=== PATIENT | female | born 1985 | race African-American/Black ===

== ENCOUNTER 2023-12-08 15:06 | Outpatient (CLI) | payer MEDICARE | END 2023-12-08 15:07 | disposition home or self-care (01) | LOC: CSHULT 15:06 | PROVIDERS: ATTEND Nurse Practitioner Women's Health | DX: R09.89 Other specified symptoms and signs involving the circulatory and respiratory systems (principal) ==

== ENCOUNTER 2024-01-26 16:55 | Emergency (ER) | payer MEDICARE ==
[~2024-01-26 16:55] MED LIST: Iopamidol 300 61% 100 ML VIAL FS ONE
[2024-01-26] MEDS ORDERED: Ondansetron PF 4 MG/2 ML Vial ONE (17:20)
[2024-01-26] MEDS ORDERED: Ketorolac Tromethamine 30 MG (1 mL) VIAL ONE (17:20)
[2024-01-26 17:27] LABS: #Basophils 0.02 10x3/uL (0.0-0.2); #Eosinphils 0.03 10x3/uL (0.0-0.5); #Monocytes 0.33 10x3/uL (0.0-1.1); #Neutrophils 7.65 10x3/uL (1.5-8.4); %Basophils 0.2 % (0.0-2.0); %Eosinophils 0.3 % (0.0-6.0); %Lymphocytes 19.6 % (18.0-47.0); %Monocytes 3.3 % (0.0-10.0); %Neutrophils 76.3 % (40.0-75.0); Hematocrit 37.7 % (34.9-44.5); Hemoglobin 11.7 g/dL (12.0-15.5); Mean Corpuscular Hemoglobin 23.4 pg (27.0-33.0); Mean Corpuscular Volume 75.6 fL (81.6-98.3); Platelet Count 420 10x3/uL (150-450); RBC Distribution Width 26.1 % (11.5-14.5); Red Blood Cell (RBC) Count 4.99 10x6/uL (3.90-5.03)
[2024-01-26 17:33] LABS: BHCG - Serum Negative (NEGATIVE); Pregs Control Background? CLEAR/WHITE (CLR/WHITE); Pregs Control Bar Appear? YES (CONTROL BAR)
[2024-01-26 17:40] LABS: ALT (SGPT) 21 U/L (8-55); AST (SGOT) 31 U/L (5-34); Albumin 3.9 g/dL (3.5-5.0); Alkaline Phosphatase 143 U/L (40-110); Anion Gap 11 mmol/L (10-20); BUN (Urea Nitrogen) 8 mg/dL (7.0-18.7); Bilirubin, Total 0.3 mg/dL (0.2-1.2); Calc. Creatinine Clearance 0 mL/min (70-130); Calcium 9.5 mg/dL (7.8-10.44); Carbon Dioxide 25 mmol/L (22-29); Chloride 106 mmol/L (98-107); Estimated GFR 98; Globulin 4.2 g/dL (2.4-3.5); Glucose 111 mg/dL (70-105); Lipase 130 U/L (8-78); Magnesium 2.3 mg/dL (1.6-2.6); Potassium 4.4 mmol/L (3.5-5.1); Protein, Total 8.1 g/dL (6.0-8.3); Sodium 138 mmol/L (136-145)
[2024-01-26 17:43] LABS: Anisocytosis MODERATE=16-30 cells (100X) (0-5/hpf); Microcytosis SLIGHT = 6-15 cells (100X) (0-5/hpf); Poikilocytosis SLIGHT = 6-15 cells (100X) (0-5/hpf)
[2024-01-26 17:44] LABS: Elliptocytes SLIGHT = 2-5 cells (100X) (0-1/hpf); Ovalocytes SLIGHT = 2-5 cells (100X) (0-1/hpf); Schistocytes SLIGHT = 2-5 cells (100X) (0-1/hpf); Tear Drops SLIGHT = 2-5 cells (100X) (0-1/hpf)
[2024-01-26 17:45] LABS: Hypochromia SLIGHT = 6-15 cells (100X) (0-5/hpf); Large Platelets SLIGHT (None Seen); Platelet Adequacy Comment Appears Adequate
[2024-01-26 19:49] LABS: Bilirubin Neg (Negative); Blood, Urine 10 (Negative); Clarity Clear (Clear); Glucose, Urine (Dipstick) 50 mg/dL (Negative); Ketone, Urine Negative (Negative); Leukocyte Negative (Negative); Nitrite Negative (Negative); Protein, Urine (Dipstick) Negative (Neg-Trace); Specific Gravity, Urine 1.005 (1.005-1.030); Urobilinogen Normal mg/dL (Less than 2)
[2024-01-26 19:56] LABS: Bacteria/HPF Rare-Few HPF (None Seen); CAUTI Indications for Culture Pelvic or flank pain; RBC/HPF 0-3 HPF (0-3); Squamous Epithelial 0-3 HPF (0-3); WBC/HPF None Seen HPF (0-3)
[2024-01-26 19:57] LABS: Urine Culture Reflex No No
== END 2024-01-26 20:20 | disposition home or self-care (01) ==
LOC: CSHERS 16:55
DX: K80.50 Calculus of bile duct without cholangitis or cholecystitis without obstruction (principal); Z55.6 Problems related to health literacy
CPT/HCPCS: 71045; 74177; 76705; 80053; 81001; 83690; 83735; 84703; 85025; 93005; J1885; J2405; 96361; 96374; 96375; Q9967

== ENCOUNTER 2024-06-01 08:23 | Outpatient (CLI) | payer MEDICARE | END 2024-06-01 08:24 | disposition home or self-care (01) | LOC: CSHULT 08:23 | PROVIDERS: ATTEND Physician Assistant Medical | DX: R74.8 Abnormal levels of other serum enzymes (principal); C18.2 Malignant neoplasm of ascending colon; Z90.49 Acquired absence of other specified parts of digestive tract | CPT/HCPCS: 76705 ==